=== PATIENT | female | born 1980 | race Caucasian/White ===

== ENCOUNTER 2019-01-09 18:19 | Emergency (ER) | payer OTHER ==
[2019-01-09] MEDS ORDERED: NS 1,000 ML IV ONE (18:53)
--- NOTE | 2019-01-09 18:58 | EDPHY ---
H & P Stated Complaint: pelvic pain Time Seen by Provider: 01/09/19 18:50 HPI/ROS: CHIEF COMPLAINT: Suprapubic pain HISTORY OF PRESENT ILLNESS: Patient is a 38-year-old who is 5 and half weeks by dates who comes to the emergency department complaining of suprapubic pain that is intermittent for the last 2 days. Her 2 most recent pregnancies ended in miscarriage at around 8 weeks. She states that she noticed some pain yesterday and assumed that that was her uterus growing. It only persisted for about an hour or 2. Then today it is been more constant. She states that it does not feel like cramping. She has not had any bleeding. She does not have a fever. She has not had any urinary symptoms. No diarrhea. Mild nausea but no vomiting. She saw her primary care doctor yesterday and had an HCG of over 1000. Severity: Moderate Modifying factors: None REVIEW OF SYSTEMS: Constitutional: denies: chills, fever, recent illness, recent injury EENTM: denies: blurred vision, double vision, nose congestion Respiratory: denies: cough, shortness of breath Cardiac: denies: chest pain, irregular heart rate, lightheadedness, palpitations Gastrointestinal/Abdominal: See HPI denies: diarrhea, vomiting, blood streaked stools Genitourinary: denies: dysuria, frequency, hematuria, pain Musculoskeletal: denies: joint pain, muscle pain Skin: denies: lesions, rash, jaundice, bruising Neurological: denies: headache, numbness, paresthesia, tingling, dizziness, weakness Hematologic/Lymphatic: denies: blood clots, easy bleeding, easy bruising Immunologic/allergic: denies: HIV/AIDS, transplant 10 systems reviewed and negative except as noted EXAM: GENERAL: Well-appearing, obese and in no acute distress. HEAD: Atraumatic, normocephalic. EYES: Pupils equal round and reactive to light, extraocular movements intact, sclera anicteric, conjunctiva are normal. ENT: TMs normal, nares patent, oropharynx clear without exudates. Moist mucous membranes. NECK: Normal range of motion, supple without lymphadenopathy or JVD. LUNGS: Breath sounds clear to auscultation bilaterally and equal. No wheezes rales or rhonchi. HEART: Regular rate and rhythm without murmurs, rubs or gallops. ABDOMEN: Soft, nontender, normoactive bowel sounds. No guarding, no rebound. No masses appreciated. : Refused, denies bleeding or discharge BACK: No CVA tenderness, no spinal tenderness, step-offs or deformities EXTREMITIES: Normal range of motion, no pitting or edema. No clubbing or cyanosis. NEUROLOGICAL: Cranial nerves II through XII grossly intact. Normal speech, normal gait. 5/5 strength, normal movement in all extremities, normal sensation , normal reflexes PSYCH: Normal mood, normal affect. SKIN: Warm, dry, normal turgor, no visible rashes or lesions. Source: Patient Exam Limitations: No limitations - Personal History LMP (Females 10-55): - Medical/Surgical History Hx Asthma: No Hx Chronic Respiratory Disease: No Hx Diabetes: No Hx Cardiac Disease: No Hx Renal Disease: No Hx Cirrhosis: No Hx Alcoholism: No Hx HIV/AIDS: No Other PMH: section - Family History Significant Family History: No pertinent family hx - Social History Alcohol Use: Sober Drug Use: None Constitutional: Initial Vital Signs Temperature (C) 36.7 C 01/09/19 18:37 Heart Rate 101 H 01/09/19 18:37 Respiratory Rate 16 01/09/19 18:37 Blood Pressure 121/99 H 01/09/19 18:37 O2 Sat (%) 98 01/09/19 18:37 O2 Delivery Mode Room Air Allergies/Adverse Reactions: Penicillins Allergy (Verified 01/09/19 19:00) Home Medications: Medication Instructions Recorded NK [No Known Home Meds] 01/09/19 Medical Decision Making - Diagnostics Imaging: Discussed imaging studies w/ icu rn Radiologist ED Course/Re-evaluation: The patient was having pain during the pelvic ultrasound exam on the right however it was not completely visualized. No obvious large cyst or hemorrhage seen. I discussed with the patient multiple options including treating with pain medication and completing the exam. Unfortunately she declined pain medication prior to the exam and was not given the opportunity during the exam to receive pain medication. She is now refusing a repeat examination. She is also refusing a pelvic examination. She adamantly denies any vaginal discharge and any risk for STD. She understands and I cannot tell her the source of her pain or rule out ectopic . Her abdominal exam remains benign. I hesitate to CT scan this woman in her early . Ultimately she decided she would go home and follow up with her OBGYN tomorrow for repeat testing and ultrasound. I encouraged her to return here if she is unable to get to her OBGYN or if her pain worsens or she develops a fever, vomiting or other new symptoms. She declines pain medication. 10:30 p.m. I have left to voicemail on the patient's cell phone. I also attempted to call her 's phone however his mailbox is full. I am concerned because her beta HCG quant came back greater than 2000 which should be visible if she has an intrauterine . There was no visible intrauterine and her right adnexa was not well visualized because of pain. I have recommend that she return immediately for repeat ultrasound this time with we can medicate her first for pain control. She declined this during her previous visit. I have discussed the case with Dr. Jackson who agrees. She had plan to follow up with her OBGYN tomorrow regardless and I encouraged her to return immediately for pain worsened. She stated that her pain had actually improved by the time she left here. 1:00 P.M. SundayJanuary 10. I placed another call. The patient's voice mailbox is now full. She had plan to follow up with her OBGYN today. Differential Diagnosis: Partial list of the Differential diagnosis considered include but were not limited to; miscarriage, ectopic , appendicitis, urinary tract infection and although unlikely based on the history and physical exam, I also considered enteritis, ischemia, volvulus, biliary disease, obstruction, PID. I discussed these differential diagnoses and the plan with the patient as well as the usual and expected course. The patient understands that the diagnosis is provisional and that in medicine we are not always correct and that further workup is often warranted. Usual and customary warnings were given. All of the patient's questions were answered. The patient was instructed to return to the emergency department should the symptoms at all worsen or return, otherwise to followup with the physician as we discussed. - Data Points Medications Given: Discontinued Medications Sodium Chloride (Ns) 1,000 mls @ 0 mls/hr IV ONCE ONE; Wide Open PRN Reason: Protocol Stop: 01/09/19 18:54 Last Admin: 01/09/19 19:33 Dose: 1,000 mls Point of Care Test Results: CBC CBC Collection Date 01/09/19 CBC Collection Time 19:04 WBC 9.84 RBC 5.03 HGB 13.0 HCT 38.8 PLT 339 Neut # 5.40 Neut 54.9 LYMPH # 3.49 LYMPH 35.5 MCV 77.1 Chemistry 01/09/19 01/09/19 19:54 19:20 POC Sodium 140 mEq/L mEq/L (135-145) POC Potassium 3.0 mEq/L L mEq/L 3.0 mEq/L L mEq/L (3.3-5.0) (3.3-5.0) POC Chloride 108.0 mEq/L mEq/L (97-110) POC Total CO2 23 mEq/L mEq/L (22-31) POC BUN 9 mg/dL mg/dL (7-23) POC Creatinine 0.7 mg/dL mg/dL (0.6-1.0) POC Glucose 94 mg/dL mg/dL (70-100) POC Calcium 9.2 mg/dL mg/dL (8.5-10.4) POC Total Bilirubin 0.9 mg/dL mg/dL (0.1-1.4) POC AST 39 IU/L IU/L (14-46) POC ALT 35 IU/L IU/L (9-52) POC Alk Phosphatase 63 IU/L IU/L (38-126) POC Total Protein 7.7 g/dL g/dL (6.3-8.2) POC Albumin 4.0 g/dL g/dL (3.5-5.0) Urine Collection Date 01/09/19 Collection Time 19:30 HCG Results Positive Urine Dip Collection Date 01/09/19 Collection Time 19:30 Specific [place] (1.002-1.030) 1.005 PH (5.0-7.5) 6.0 Leukocytes (Negative) Negative Nitrites (Negative) Negative Protein (Negative) Negative Glucose (Negative) Negative Ketones (Negative) Negative Urobilnogen (0.2-1.0 EU) 0.2 Bilirubin (Negative) Negative Blood (Negative) Negative Departure - Departure Disposition: Home, Routine, Self-Care Clinical Impression: Qualifiers: Weeks of gestation: less than 8 weeks Qualified Code(s): Z3A.01 - Less than 8 weeks gestation of Condition: Fair Instructions: (ED) Referrals: Estephania wallace [Other] - 1 day without fail
[2019-01-09 20:09] VITALS: BP 154/75
== END 2019-01-09 20:28 | disposition home or self-care (01) ==
LOC: CED 18:19
DX: O99.89 Other specified diseases and conditions complicating pregnancy, childbirth and the puerperium (principal); O99.281 Endocrine, nutritional and metabolic diseases complicating pregnancy, first trimester; E86.9 Volume depletion, unspecified; Z3A.01 Less than 8 weeks gestation of pregnancy
CPT/HCPCS: 80053-ER; 84132-PO; 96360-ER